=== PATIENT | female | born 1940 | race Caucasian/White ===

== ENCOUNTER → 2018-05-12 12:17 | Outpatient (CLI) | payer OTHER, SELFPAY ==
--- NOTE | 2018-05-12 | DI.MG.S_ITS ---
BILATERAL DIGITAL SCREENING MAMMOGRAM 3D/2D WITH CAD: 05/12/2018 CLINICAL: Routine screening. Comparison is made to exams dated: 04/11/2017 mammogram, 03/29/2016 mammogram, and 03/24/2015 mammogram - [facility]. The tissue of both breasts is predominantly fatty. Current study was also evaluated with a Computer Aided Detection (CAD) system. No significant masses, calcifications, or other findings are seen in either breast. There has been no significant interval change. IMPRESSION: NEGATIVE There is no mammographic evidence of malignancy. A 1 year screening mammogram is recommended. This exam was interpreted at Station ID: [id number]. NOTE: For mammograms, a report in lay terms will be sent to the patient. Approximately 15% of breast malignancies will not be visualized mammographically. In the management of a palpable breast mass, a negative mammogram must not discourage biopsy of a clinically suspicious lesion. Electronically Signed By: Lopez hood/rita:05/12/2018 16:54:45 letter sent: Normal Exam ACR BI-RADS Category 1: Negative 3341F
== END ==
PROVIDERS: PCP Physician Assistant; Visit Provider Physician Assistant
DX: Z12.31 Encounter for screening mammogram for malignant neoplasm of breast (principal)
CPT/HCPCS: 77063; 77067

== ENCOUNTER → 2018-05-19 09:08 | Outpatient (CLI) | payer OTHER, SELFPAY ==
--- NOTE | 2018-05-19 | DI.US.S_ITS ---
PROCEDURE: US RETRO PERITONEAL LIMITED INDICATIONS: AAA WITHOUT RUPTURE TECHNIQUE: Real time scanning was performed of the aorta and iliac arteries, with image documentation. COMPARISON: None. FINDINGS: Aorta: Proximal aortic diameter measures 2.3 cm. Mid-aorta measures 1.9 cm. Distal aortic diameter is 2.3 by 2.8 cm. Iliac arteries: Right common iliac artery measures 1.1 cm. Left common iliac artery measures 1.2 cm. IMPRESSION: Mild ectasia in the distal abdominal aorta for which a 5 year followup ultrasound is recommended. Iliac arteries are normal in caliber. Dictated by: Cody Cha M.D. on 05/19/2018 at 10:33 Approved by: Cody Cha M.D. on 05/19/2018 at 10:34
== END ==
PROVIDERS: PCP Physician Assistant; Visit Provider Physician Assistant
DX: I71.4 Abdominal aortic aneurysm, without rupture (principal)
CPT/HCPCS: 76775

== ENCOUNTER → 2019-04-29 09:08 | Outpatient (CLI) | payer OTHER, SELFPAY ==
[2019-04-29 10:57] LABS: Alanine Aminotransferase 17 IU/L (9-52); Albumin 4.3 g/dL (3.5-5.0); Albumin Globulin Ratio 1.4 (1.0-2.8); Alkaline Phosphatase 59 U/L (38-126); Aspartate Aminotransferase 30 IU/L (14-36); BUN Creatinine Ratio 26.7 (6-22); Bilirubin Total 0.6 mg/dL (0.2-1.3); Blood Urea Nitrogen 16 mg/dL (7-17); Calcium 9.5 mg/dL (8.4-10.2); Carbon Dioxide 33 mmol/L (22-32); Chloride 102 mmol/L (98-107); Cholesterol 148 mg/dL (140-199); Estimated Glomerular Filt Rate > 60.0 mL/min (>60); Globulin 3.1 g/dL (1.7-4.1); Glucose 93 mg/dL (80-110); HDL Cholesterol 57 mg/dL (40-60); HEMOLYSIS 21 (0-50); LDL Cholesterol Calculated 73 mg/dL (<100); Potassium 3.8 mmol/L (3.4-5.1); Sodium 140 mmol/L (137-145); Total Protein 7.4 g/dL (6.3-8.2); Triglycerides 91 mg/dL (35-150)
[2019-04-29 11:21] LABS: Thyroid Stimulating Hormone 1.16 uIU/mL (0.47-4.68)
[2019-05-02 10:35] LABS: Ionized Calcium 5.3 mg/dL (4.8-5.6)
[2019-05-02 16:52] LABS: Parathyroid Hormone Int 29 pg/mL (14-64)
== END ==
PROVIDERS: PCP Physician Assistant; Visit Provider Internal Medicine
DX: N39.0 Urinary tract infection, site not specified (principal); E78.5 Hyperlipidemia, unspecified; R00.1 Bradycardia, unspecified; E21.3 Hyperparathyroidism, unspecified
CPT/HCPCS: 36415; 80053; 80061; 82330; 83970; 84443

== ENCOUNTER → 2019-05-19 15:36 | Outpatient (CLI) | payer OTHER, SELFPAY ==
--- NOTE | 2019-05-19 | DI.MG.S_ITS ---
BILATERAL DIGITAL SCREENING MAMMOGRAM 3D/2D WITH CAD: 05/19/2019 CLINICAL: Routine screening. Comparison is made to exams dated: 05/12/2018 mammogram, 04/11/2017 mammogram, and 03/29/2016 mammogram - [facility]. There are scattered fibroglandular elements in both breasts. Current study was also evaluated with a Computer Aided Detection (CAD) system. No significant masses, calcifications, or other findings are seen in either breast. There has been no significant interval change. IMPRESSION: NEGATIVE There is no mammographic evidence of malignancy. A 1 year screening mammogram is recommended. This exam was interpreted at Station ID: [id number]. NOTE: For mammograms, a report in lay terms will be sent to the patient. Approximately 15% of breast malignancies will not be visualized mammographically. In the management of a palpable breast mass, a negative mammogram must not discourage biopsy of a clinically suspicious lesion. Electronically Signed By: Nancy hodge/rita:05/19/2019 16:21:40 letter sent: Normal Exam ACR BI-RADS Category 1: Negative 3341F
== END ==
PROVIDERS: PCP Physician Assistant; Visit Provider Physician Assistant
DX: Z12.31 Encounter for screening mammogram for malignant neoplasm of breast (principal)
CPT/HCPCS: 77063; 77067

== ENCOUNTER → 2019-06-24 13:31 | Outpatient (CLI) | payer OTHER, SELFPAY ==
[2019-06-25 08:57] LABS: Appearance Urine UA SL CLOUDY; Bilirubin Urine UA NEGATIVE (NEGATIVE); Color Urine UA YELLOW; Ketones Urine UA NEGATIVE (NEGATIVE); Leukocyte Esterase Urine UA 3+ (NEGATIVE); Nitrite Urine UA POSITIVE (Negative); Occult Blood Urine UA TRACE-LYSED (Negative); Protein Urine UA TRACE (Negative)
[2019-06-25 08:59] LABS: Glucose Urine UA NEGATIVE (Negative)
[2019-06-25 09:00] LABS: pH Urine UA 8.5 (4.5-8.0)
[2019-06-25 09:25] LABS: Bacteria Urine Many (>30); RBC Urine 0-1/HPF (0-5/HPF); Squamous Epithelial Cell Urine 1-5 /HPF (0-5/HPF); Triple Phosphate Crystal Urine Few; WBC Urine 1-5/HPF (0-5/HPF)
== END ==
PROVIDERS: PCP Physician Assistant; Visit Provider Internal Medicine
DX: N39.0 Urinary tract infection, site not specified (principal); E78.5 Hyperlipidemia, unspecified; R00.1 Bradycardia, unspecified; E21.3 Hyperparathyroidism, unspecified
CPT/HCPCS: 81001; 87077; 87086; 87186

== ENCOUNTER → 2019-10-27 14:47 | Outpatient (ROUT) | payer OTHER, SELFPAY ==
[2019-10-27 15:41] LABS: Alanine Aminotransferase 21 IU/L (<35); Albumin 4.3 g/dL (3.5-5.0); Albumin Globulin Ratio 1.5 (1.0-2.8); Alkaline Phosphatase 51 U/L (38-126); Aspartate Aminotransferase 29 IU/L (14-36); Bilirubin Total 0.7 mg/dL (0.2-1.3); Blood Urea Nitrogen 21 mg/dL (7-17); Calcium 9.7 mg/dL (8.4-10.2); Carbon Dioxide 34 mmol/L (22-32); Chloride 98 mmol/L (98-107); Cholesterol 158 mg/dL (140-199); Estimated Glomerular Filt Rate > 60.0 mL/min (>60); Globulin 2.8 g/dL (1.7-4.1); Glucose 69 mg/dL (80-110); HDL Cholesterol 57 mg/dL (40-60); HEMOLYSIS < 15 (0-50); LDL Cholesterol Calculated 71 mg/dL (<100); Potassium 4.9 mmol/L (3.4-5.1); Sodium 138 mmol/L (137-145); Total Protein 7.1 g/dL (6.3-8.2); Triglycerides 148 mg/dL (35-150)
[2019-10-27 17:00] LABS: Add Manual Diff / Slide Review NO; Basophils Absolute Auto 0 /uL (0-100); Basophils Percent Auto 0.7 % (0-2); Eosinophils Absolute Auto 100 /uL (0-450); Eosinophils Percent Auto 1.8 % (2-4); Hematocrit 39.2 % (36-46); Hemoglobin 13.3 g/dL (12.0-16.0); Lymphocytes Absolute Auto 1200 /uL (1100-4500); Lymphocytes Percent Auto 28.8 % (25-40); Mean Corpuscular Hemoglobin 30.7 PG (26-34); Mean Corpuscular Volume 90.4 fL (80-100); Monocytes Absolute Auto 400 /uL (0-900); Monocytes Percent Auto 8.5 % (3-14); Neutrophils Absolute Auto 2600 /uL (1500-7000); Neutrophils Percent Auto 60.2 % (50-75); Platelet Count 167 X10^3/uL (150-400); Red Blood Cell Count 4.33 X10^6/uL (4.0-5.2); Red Cell Distribution Width 13.3 % (11.6-14.8); White Blood Cell Count 4.3 X10^3/uL (4.5-11.0)
== END ==
PROVIDERS: PCP Physician Assistant; Visit Provider Physician Assistant
DX: I10 Essential (primary) hypertension (principal); E78.5 Hyperlipidemia, unspecified
CPT/HCPCS: 80053; 80061; 85025

== ENCOUNTER → 2020-01-11 11:43 | Outpatient (CLI) | payer OTHER, SELFPAY ==
[2020-01-11 12:06] LABS: Bacteria Urine None Seen; RBC Urine None Seen (0-5/HPF); WBC Urine None Seen (0-5/HPF)
[2020-01-11 12:21] LABS: Appearance Urine UA CLEAR; Bilirubin Urine UA NEGATIVE (NEGATIVE); Color Urine UA YELLOW; Glucose Urine UA NEGATIVE (Negative); Ketones Urine UA NEGATIVE (NEGATIVE); Leukocyte Esterase Urine UA NEGATIVE (NEGATIVE); Nitrite Urine UA NEGATIVE (Negative); Occult Blood Urine UA NEGATIVE (Negative); Protein Urine UA NEGATIVE (Negative); Urobilinogen Urine UA 0.2 E.U./dL (0.2)
[2020-01-11 12:53] LABS: Culture Indicated Urine Cult Not Indicated; Squamous Epithelial Cell Urine 0-1 /HPF (0-5/HPF)
== END ==
PROVIDERS: PCP Physician Assistant; Referring Provider Physician Assistant; Visit Provider Physician Assistant
DX: R39.9 Unspecified symptoms and signs involving the genitourinary system (principal); R30.0 Dysuria
CPT/HCPCS: 81001; 87086

== ENCOUNTER → 2020-07-01 13:33 | Outpatient (CLI) | payer OTHER, SELFPAY ==
--- NOTE | 2020-07-01 | DI.MG.S_ITS ---
BILATERAL DIGITAL SCREENING MAMMOGRAM 3D/2D WITH CAD: 07/01/2020 CLINICAL: Routine screening. Comparison is made to exams dated: 05/19/2019 mammogram, 05/12/2018 mammogram, and 04/11/2017 mammogram - [facility]. There are scattered fibroglandular elements in both breasts. Current study was also evaluated with a Computer Aided Detection (CAD) system. There is a 9 mm asymmetry in the right breast sub-areolar depth central to the nipple seen on the craniocaudal view only. This appears to have slowly/indolently enlarged when compared with prior studies. No other significant masses, calcifications, or other findings are seen in either breast. IMPRESSION: INCOMPLETE: NEEDS ADDITIONAL IMAGING EVALUATION Asymmetry in the right breast for which diagnostic mammogram and ultrasound are recommended. This exam was interpreted at Station ID: [id number]. NOTE: For mammograms, a report in lay terms will be sent to the patient. Approximately 15% of breast malignancies will not be visualized mammographically. In the management of a palpable breast mass, a negative mammogram must not discourage biopsy of a clinically suspicious lesion. Electronically Signed By: Jimbo Moody M.D. jr/:07/01/2020 16:53:46 letter sent: Additional Imaging Needed ACR BI-RADS Category 0: Incomplete 3340F
== END ==
PROVIDERS: PCP Physician Assistant; Referring Provider Physician Assistant; Visit Provider Physician Assistant
DX: Z12.31 Encounter for screening mammogram for malignant neoplasm of breast (principal)
CPT/HCPCS: 77063; 77067

== ENCOUNTER → 2020-07-07 14:43 | Outpatient (CLI) | payer OTHER, SELFPAY ==
--- NOTE | 2020-07-07 15:02 | DI.MG.S_ITS ---
Patient Name: URBANO LUCIANO date: 1940 Sex: F Attending Physician: Alvarez Indications: Date: 07/07/2020 15:15 At the request of: JOSE A MCNAMARA Procedure: US breast RT limited LIMITED ULTRASOUND OF RIGHT BREAST AND AXILLA: 07/07/2020 CLINICAL: Right breast abnormal Mammo. Comparison is made to exams dated: 07/07/2020 mammogram, 07/01/2020 mammogram, 05/19/2019 mammogram, 05/12/2018 mammogram, 04/11/2017 mammogram, and 03/29/2016 mammogram - [facility]. Color flow and real-time ultrasound of the right breast retroareolar and axilla regions were performed on the areas of interest. There is a 0.7 cm x 0.5 cm x 0.8 cm oval mass with an indistinct margin in the right breast at 9 o'clock in the retroareolar region. This oval mass is hypoechoic. This correlates with mammography findings. Color flow imaging demonstrates that there is vascularity present. No suspicious enlarged lymph nodes were seen sonographically in the right axilla. IMPRESSION: SUSPICIOUS OF MALIGNANCY The 0.7 cm x 0.5 cm x 0.8 cm oval mass in the right breast is suspicious of malignancy. An ultrasound guided biopsy is recommended. The findings were discussed with the patient at the conclusion of the study by Dr. Limon. This exam was interpreted at Station ID: [id number]. Electronically Signed By: Joel Corea M.D. ddp/:07/07/2020 15:33:08 letter sent: Biopsy Required Ultrasound BI-RADS: 4 Suspicious for malignancy
== END ==
PROVIDERS: PCP Physician Assistant; Referring Provider Physician Assistant; Visit Provider Physician Assistant
DX: R92.8 Other abnormal and inconclusive findings on diagnostic imaging of breast (principal); N63.15 Unspecified lump in the right breast, overlapping quadrants
CPT/HCPCS: 76642; 77065; G0279

== ENCOUNTER → 2020-07-22 13:54 | Outpatient (CLI) | payer OTHER, SELFPAY ==
--- NOTE | 2020-07-22 | PATH_ITS ---
[facility] Accession Number: [id number] . 01 Material submitted: . breast - RIGHT BREAST MASS 900 RETROAREOLAR . 01 Diagnosis: Right Breast Mass, 9 o'clock, Retroareolar, Biopsy: Breast parenchyma with fibroadenomatoid change, cystic duct dilatation, usual ductal hyperplasia, apocrine metaplasia, and focal adenosis. Calcifications are not identified. Negative for atypia, carcinoma in situ, and malignancy. MRV 07/25/2020 1735 Local . 01 Comment: Clinical and radiographic correlation is necessary. . 01 Electronically signed: . Fatou Novoa MD, Pathologist NPI- [id number] . 01 Gross description: . Received in formalin, labeled RT breast, are multiple pieces of north, fibrous tissue measuring 1.7 x 0.3 x 0.3 cm to 0.5 x 0.5 x 0.2 cm. All pieces of tissue are entirely submitted in cassettes A1 and A2, with five pieces in cassette A1 and three pieces in cassette A2. The collection date and time are listed as 07/22/20 at 15:34 for a total fixation time of approximately 17 hours after processing. ([id number]) /FRR 07/23/2020 0853 Local . 01 Microscopic: . No polarizable material is identified under polarizable light microscopy. . 01 Pathologist provided ICD-10: N60.19 . 01 CPT . 238516 Performed at: [address] [facility] [address], [place], [place] [id number] MD Joel Sweet MD Phone: [phone]
--- NOTE | 2020-07-22 14:31 | DI.US.S_ITS ---
Patient Name: URBANO LUCIANO date: 1940 Sex: F Attending Physician: Alvarez Indications: Date: 07/22/2020 15:37 At the request of: JOSE A MCNAMARA Procedure: US bx breast perc w vac device ULTRASOUND GUIDED BIOPSY RIGHT BREAST USING VACUUM DEVICE WITH MARKING DEVICE INSERTED: 07/22/2020 CLINICAL: Right breast mass. PATIENT CONSENT: Risks (minor bleeding, infection, vasovagal reaction and repeat procedure), benefits and alternatives were explained to the patient and written informed consent was obtained. Correlation is made to exams dated: 07/07/2020 ultrasound, 07/07/2020 mammogram, 07/01/2020 mammogram, and 05/19/2019 mammogram - [facility]. An ultrasound guided biopsy using real-time ultrasound was performed for the lesion located in the right breast at 9 o'clock in the retroareolar region. The skin was prepped in the usual manner. Local anesthetic was administered to the access site. A small incision was made in the breast. The abnormality was approached from the lateral aspect. A biopsy needle was placed adjacent to the abnormality under ultrasound guidance. Once the needle was documented to be in the correct location, seven specimens were obtained using the Mammotome biopsy system. A clip was inserted into the biopsy cavity. The specimens were sent to the laboratory for pathological analysis. IMPRESSION: ULTRASOUND GUIDED BIOPSY BENIGN Ultrasound guided biopsy of the lesion in the right breast at 9 o'clock in the retroareolar region was successful. Pathology demonstrates Breast parenchyma with fibroadenomatoid change, cystic duct dilatation, usual ductal hyperplasia, apocrine metaplasia, and focal adenosis. Calcifications are not identified. Negative for atypia, carcinoma in situ, and malignancy. Imaging is concordant. Recommend return to screening mammogram. Continued Report - Page 2 of 2 Patient Name: URBANO LUCIANO date: 1940 Sex: F Attending Physician: Alvarez Indications: Date: 07/22/2020 15:37 At the request of: JOSE A MCNAMARA Procedure: US bx breast perc w vac device This exam was interpreted at Station ID: [id number]. Anish srinivasan,slc/:07/26/2020 17:42:55
--- NOTE | 2020-07-22 15:33 | DI.MG.S_ITS ---
Patient Name: URBANO LUCIANO date: 1940 Sex: F Attending Physician: Alvarez Indications: Date: 07/22/2020 14:15 At the request of: JOSE A MCNAMARA Procedure: MM diagnostic mammo [id number] UNILATERAL RIGHT DIGITAL DIAGNOSTIC MAMMOGRAM POST-NEEDLE BIOPSY: 07/22/2020 CLINICAL: Right breast mass. Comparison is made to exams dated: 07/07/2020 mammogram, 07/01/2020 mammogram, and 05/19/2019 mammogram - [facility]. There are scattered fibroglandular elements in right breast. There is a marker clip in the appropriate position in the right breast at 9 o'clock anterior depth. This marker clip placement is at the biopsy site. IMPRESSION: POST PROCEDURE MAMMOGRAM FOR MARKER PLACEMENT There was a successful marker clip placement in the right breast This exam was interpreted at Station ID: [id number]. NOTE: For mammograms, a report in lay terms will be sent to the patient. Approximately 15% of breast malignancies will not be visualized mammographically. In the management of a palpable breast mass, a negative mammogram must not discourage biopsy of a clinically suspicious lesion. Electronically Signed By: Anish srinivasan/:07/22/2020 16:56:12 ACR BI-RADS Category Post-procedure mammogram for marker placement
== END ==
PROVIDERS: PCP Physician Assistant; Referring Provider Physician Assistant; Visit Provider Physician Assistant
DX: N60.81 Other benign mammary dysplasias of right breast (principal); N60.21 Fibroadenosis of right breast; N60.41 Mammary duct ectasia of right breast; N63.10 Unspecified lump in the right breast, unspecified quadrant
CPT/HCPCS: 19083; 77065

== ENCOUNTER → 2020-10-20 09:13 | Outpatient (CLI) | payer OTHER, SELFPAY ==
[2020-10-20 10:15] LABS: Add Manual Diff / Slide Review NO; Basophils Absolute Auto 0 /uL (0-100); Basophils Percent Auto 0.9 % (0-2); Eosinophils Absolute Auto 200 /uL (0-450); Eosinophils Percent Auto 3.5 % (2-4); Hematocrit 37.7 % (36-46); Hemoglobin 12.9 g/dL (12.0-16.0); Lymphocytes Absolute Auto 1500 /uL (1100-4500); Lymphocytes Percent Auto 33.6 % (25-40); Mean Corpuscular HGB Conc 34.2 % (30-36); Mean Corpuscular Hemoglobin 30.1 PG (26-34); Monocytes Absolute Auto 400 /uL (0-900); Monocytes Percent Auto 7.8 % (3-14); Neutrophils Absolute Auto 2500 /uL (1500-7000); Neutrophils Percent Auto 54.2 % (50-75); Platelet Count 218 X10^3/uL (150-400); Red Blood Cell Count 4.28 X10^6/uL (4.0-5.2); Red Cell Distribution Width 13.6 % (11.6-14.8); White Blood Cell Count 4.5 X10^3/uL (4.5-11.0)
[2020-10-20 10:39] LABS: Alanine Aminotransferase 24 IU/L (<35); Albumin Globulin Ratio 1.3 (1.0-2.8); Alkaline Phosphatase 74 U/L (38-126); Aspartate Aminotransferase 28 IU/L (14-36); BUN Creatinine Ratio 23.4 (6-22); Bilirubin Total 0.5 mg/dL (0.2-1.3); Blood Urea Nitrogen 18 mg/dL (7-17); Calcium 9.6 mg/dL (8.4-10.2); Carbon Dioxide 30 mmol/L (22-32); Chloride 105 mmol/L (98-107); Cholesterol 159 mg/dL (140-199); Estimated Glomerular Filt Rate > 60.0 mL/min (>60); Globulin 3.1 g/dL (1.7-4.1); Glucose 104 mg/dL (80-110); HDL Cholesterol 56 mg/dL (40-60); HEMOLYSIS < 15 (0-50); LDL Cholesterol Calculated 71 mg/dL (<100); Potassium 3.8 mmol/L (3.4-5.1); Sodium 138 mmol/L (137-145); Total Protein 7.1 g/dL (6.3-8.2); Triglycerides 160 mg/dL (35-150)
== END ==
PROVIDERS: PCP Physician Assistant; Referring Provider Physician Assistant; Visit Provider Physician Assistant
DX: I10 Essential (primary) hypertension (principal); E78.5 Hyperlipidemia, unspecified
CPT/HCPCS: 36415; 80053; 80061; 85025

== ENCOUNTER → 2021-01-03 13:48 | Outpatient (CLI) | payer OTHER, SELFPAY | PROVIDERS: PCP Physician Assistant; Visit Provider Specialist | DX: N39.0 Urinary tract infection, site not specified (principal); N95.2 Postmenopausal atrophic vaginitis; N39.9 Disorder of urinary system, unspecified; Z87.440 Personal history of urinary (tract) infections | CPT/HCPCS: 81002; 87086; 99215 ==

== ENCOUNTER → 2021-07-07 14:31 | Outpatient (CLI) | payer OTHER, SELFPAY ==
--- NOTE | 2021-07-07 | DI.MG.S_ITS ---
BILATERAL DIGITAL SCREENING MAMMOGRAM 3D/2D WITH CAD: 07/07/2021 CLINICAL: Routine screening. Comparison is made to exams dated: 07/01/2020 mammogram, 05/19/2019 mammogram, and 05/12/2018 mammogram - [facility]. There are scattered fibroglandular elements in both breasts. Current study was also evaluated with a Computer Aided Detection (CAD) system. There is a biopsy clip in the right breast. No significant masses, calcifications, or other findings are seen in either breast. There has been no significant interval change. IMPRESSION: NEGATIVE There is no mammographic evidence of malignancy. A 1 year screening mammogram is recommended. This exam was interpreted at Station ID: [id number]. NOTE: For mammograms, a report in lay terms will be sent to the patient. Approximately 15% of breast malignancies will not be visualized mammographically. In the management of a palpable breast mass, a negative mammogram must not discourage biopsy of a clinically suspicious lesion. Electronically Signed By: Trevor knapp/rita:07/07/2021 15:41:44 letter sent: Normal Exam ACR BI-RADS Category 1: Negative 3341F
== END ==
PROVIDERS: PCP Physician Assistant; Referring Provider Physician Assistant; Visit Provider Physician Assistant
DX: Z12.31 Encounter for screening mammogram for malignant neoplasm of breast (principal)
CPT/HCPCS: 77063; 77067

== ENCOUNTER → 2022-08-09 08:13 | Outpatient (CLI) | payer OTHER, SELFPAY ==
--- NOTE | 2022-08-09 | DI.MG.S_ITS ---
BILATERAL DIGITAL SCREENING MAMMOGRAM 3D/2D WITH CAD: 08/09/2022 CLINICAL: Routine screening. Comparison is made to exams dated: 07/07/2021 mammogram, 07/01/2020 mammogram, and 05/19/2019 mammogram - [facility]. There are scattered areas of fibroglandular density in both breasts (category b / 25%-50% glandular tissue). Current study was also evaluated with a Computer Aided Detection (CAD) system. There is a biopsy clip in the right breast. No significant masses, calcifications, or other findings are seen in either breast. There has been no significant interval change. IMPRESSION: BENIGN There is no mammographic evidence of malignancy. A 1 year screening mammogram is recommended. Based on the Tyrer Cuzick model (a risk assessment model) the patient's lifetime risk is 0.4% and her 10 year risk is 0.0%. According to the ACR, ACS, and NCCN guidelines, an annual breast MRI exam along with mammogram is recommended if the patient's lifetime risk is 20% or greater. This exam was interpreted at Station ID: [id number]. NOTE: For mammograms, a report in lay terms will be sent to the patient. Approximately 15% of breast malignancies will not be visualized mammographically. In the management of a palpable breast mass, a negative mammogram must not discourage biopsy of a clinically suspicious lesion. Electronically Signed By: Mike quispe/rita:08/09/2022 12:13:20 letter sent: Normal Exam ACR BI-RADS Category 2: Benign Finding(s) 3342F
== END ==
PROVIDERS: PCP Physician Assistant; Referring Provider Physician Assistant; Visit Provider Physician Assistant
DX: Z12.31 Encounter for screening mammogram for malignant neoplasm of breast (principal)
CPT/HCPCS: 77063; 77067

== ENCOUNTER 2024-02-03 13:38 | Emergency (ER) | payer OTHER, SELFPAY ==
[2024-02-03] VITALS (34 sets, daily range): BP systolic 102–244; BP diastolic 54–117; PULSE 42–76; RESP 13–36; TEMP 36.6; O2SAT 93–98; BMI 29.2
--- NOTE | 2024-02-03 13:54 | DI.RAD.S_ITS ---
PROCEDURE: XR CHEST 1V INDICATIONS: chest pain TECHNIQUE: One view of the chest was acquired. COMPARISON: [facility], , CHEST 2 VIEW, 09/15/2014, 15:09. FINDINGS: Surgical changes and devices: None. Lungs and pleura: Lungs are clear. No pleural effusions or pneumothorax. Mediastinum: Mediastinal contours appear normal. Heart size is mildly enlarged, as before. Bones and chest wall: No suspicious bony lesions. Overlying soft tissues appear unremarkable. IMPRESSION: Mild cardiomegaly, unchanged. No acute pulmonary findings. Dictated by: Nancy Russ M.D. on 02/03/2024 at 15:09 Approved by: Nancy Russ M.D. on 02/03/2024 at 15:12
[2024-02-03 14:18] LABS: INR 1.1 (0.9-1.3); Prothrombin Time 12.8 SECONDS (9.4-12.5)
[2024-02-03 14:21] LABS: PTT Partial Thromboplastin Tim 34 SECONDS (25.1-36.5)
[2024-02-03 14:22] LABS: Add Manual Diff / Slide Review NO; Basophils Absolute Auto 100 /uL (0-100); Basophils Percent Auto 0.8 % (0-2); Eosinophils Absolute Auto 100 /uL (0-450); Eosinophils Percent Auto 2.2 % (2-4); Hematocrit 42.2 % (36-46); Hemoglobin 14.2 g/dL (12.0-16.0); Lymphocytes Absolute Auto 2000 /uL (1100-4500); Lymphocytes Percent Auto 32.9 % (25-40); Mean Corpuscular HGB Conc 33.7 % (30-36); Mean Corpuscular Hemoglobin 31.1 PG (26-34); Mean Corpuscular Volume 92.1 fL (80-100); Monocytes Absolute Auto 400 /uL (0-900); Monocytes Percent Auto 6.6 % (3-14); Neutrophils Absolute Auto 3600 /uL (1500-7000); Neutrophils Percent Auto 57.5 % (50-75); Platelet Count 221 X10^3/uL (150-400); Red Blood Cell Count 4.58 X10^6/uL (4.0-5.2); Red Cell Distribution Width 13.9 % (11.6-14.8); White Blood Cell Count 6.2 X10^3/uL (4.5-11.0)
--- NOTE | 2024-02-03 14:22 | DI.CT.S_ITS ---
PROCEDURE: CT HEAD/BRAIN WO CON INDICATIONS: HTN, R SIDED HEADACHE TECHNIQUE: Noncontrast 4.5 mm thick angled axial sections acquired from the foramen magnum to the vertex, with coronal and sagittal reformats. For radiation dose reduction, the following was used: automated exposure control, adjustment of mA and/or kV according to patient size. COMPARISON: None. FINDINGS: Image quality: Diagnostic. CSF spaces: Basal cisterns are patent. No extra-axial fluid collections. The ventricles are symmetric in size and shape. Brain: No intracranial bleeds or masses. There is cerebral volume loss for age, with resultant ventricular and sulcal prominence. There are periventricular and deep white matter chronic small vessel ischemic changes. There is intracranial internal carotid artery atherosclerosis. Skull and face: Calvarium and visualized facial bones appear intact, without suspicious lesions. Sinuses: Visualized sinuses and mastoids are clear. IMPRESSION: 1. No acute intracranial abnormalities. 2. Cerebral volume loss and chronic microvascular ischemic changes. Dictated by: Marcello Llanes M.D. on 02/03/2024 at 14:55 Approved by: Marcello Llanes M.D. on 02/03/2024 at 14:55
[2024-02-03 14:26] LABS: Alanine Aminotransferase 24 IU/L (<35); Albumin 4.7 g/dL (3.5-5.0); Albumin Globulin Ratio 1.2 (1.0-2.8); Alkaline Phosphatase 64 U/L (38-126); Aspartate Aminotransferase 31 IU/L (14-36); BUN Creatinine Ratio 26.2 (6-22); Bilirubin Total 0.8 mg/dL (0.2-1.3); Blood Urea Nitrogen 16 mg/dL (7-17); Calcium 10.1 mg/dL (8.4-10.2); Carbon Dioxide 27 mmol/L (22-32); Chloride 106 mmol/L (98-107); Creatine Kinase 101 U/L (30-135); Estimated Glomerular Filt Rate > 60 mL/min (>60); Globulin 3.8 g/dL (1.7-4.1); Glucose 94 mg/dL (80-110); HEMOLYSIS < 15 (0-50); Lipase 181 U/L (23-300); Magnesium 2.1 mg/dL (1.6-2.3); Potassium 3.8 mmol/L (3.4-5.1); Sodium 139 mmol/L (137-145); Total Protein 8.5 g/dL (6.3-8.2)
--- NOTE | 2024-02-03 14:30 | ED.GENADULT ---
HPI - General Adult General Chief complaint: Hypertension Stated complaint: elevated BP Time Seen by Provider: 02/03/24 13:45 Source: patient Mode of arrival: Ambulatory History of Present Illness HPI narrative: 83-year-old female with history of hypertension presents by private vehicle from home for elevated blood pressure readings at home. Patient states for the last 3-4 days she has had allergy symptoms that has been poorly controlled. She feels stuffy and generally unwell and has not been sleeping well due to her symptoms. She has been taking Sudafed and Zyrtec for her symptoms with minimal relief. Patient states that she just got a new blood pressure cuff and was taking measurements and her blood pressure was consistently over 180 systolic. She became very concerned and called her doctor who bring her to the emergency department. Patient states she stopped taking chlorthalidone at the recommendations of her primary care doctor 1 month ago, denies any other medication changes. Patient states her primary symptom of her allergies is ear fullness as well as a right-sided temporal headache Related Data Home Medications Medication Instructions Recorded Confirmed CHOLECALCIFEROL (VITAMIN D) 1,000 iu PO Q DAY ##0 10/17/11 02/01/21 carvedilol 12.5 mg tablet (Coreg) 12.5 mg PO BID ##0 10/17/11 02/03/24 lisinopril 20 mg tablet (Prinivil) 20 mg PO BEDTIME ##0 10/17/11 02/03/24 atorvastatin 10 mg tablet 10 mg PO DAILY 12/30/20 02/01/21 bismuth subsalicylate 262 mg/15 mL 524 mg PO ONCE 12/30/20 02/01/21 oral suspension (Pepto-Bismol) cranberry extract 650 mg capsule 650 mg PO DAILY 12/30/20 02/01/21 d-mannose ea PO 12/30/20 02/01/21 loratadine 10 mg tablet 10 mg PO DAILY 12/30/20 02/01/21 (Allerclear) multivitamin 1 tab PO DAILY 12/30/20 02/01/21 omeprazole 20 mg capsule,delayed 20 mg PO DAILY 12/30/20 02/01/21 release tramadol 50 mg tablet 50 mg PO ONCE PRN 12/30/20 02/01/21 atorvastatin 10 mg tablet 10 mg PO DAILY 02/03/24 02/03/24 Previous Rx's Medication Instructions Recorded phenazopyridine 100 mg tablet 200 mg (2 x 100 mg) PO TID #12 tabs 01/19/18 (Pyridium) estradiol 10 mcg vaginal tablet 10 mcg vaginal 2XW #30 tabs 04/13/21 amlodipine 5 mg tablet 5 mg PO DAILY #30 tabs 02/03/24 Allergies Allergy/AdvReac Type Severity Reaction Status Date / Time Sulfa (Sulfonamide Allergy Unknown RASH Verified 02/03/24 15:35 Antibiotics) [SULFA (SULFONAMIDE ANTIBIOTICS)] Review of Systems Review of Systems Narrative: Negative except as noted above Patient History Medical History (Updated 02/03/24 @ 16:41 by Adenike Patel MD) Pelvic pain in female Lower urinary tract symptoms (LUTS) History of UTI Postmenopausal atrophic vaginitis Hypertension Chronic UTI Skin cancer Surgical History History of breast biopsy History of laparoscopy History of cholecystectomy History of appendectomy Family History Mother Multiple myeloma Hypertension Father Coronary artery disease Hearing impairment Hyperlipidemia Hypertension Social History marital status: number of children: 3 occupational status: previously employed Smoking Status: Former smoker Tobacco: How many years used: 13 alcohol intake: current caffeine: Yes Smoking Status: Former smoker Substance Use Type: does not use Exam Initial Vital Signs Initial Vital Signs: Vital Signs Pulse Rate 66 02/03/24 13:48 Pulse Oximetry 97 02/03/24 13:48 Const: Awake, alert, no acute distress, nontoxic appearing HEENT: PERRL, EOMI, TM with minimal nonpurulent effusion R TM Cardiac: regular rate, regular rhythm RESP: unlabored, clear bilaterally, no wheezing GI: Soft, nontender, nondistended, no rebound, no guarding MSK: Atraumatic, full range of motion, pulses equal Skin: Warm, Dry, intact, no rashes Neuro: AO x3, CN II-XII grossly intact, moves all extremities Course Orders Ordered: Discontinued Medications Hydralazine HCl (Hydralazine 20 Mg/Ml Vial) 10 mg IV NOW ONE Stop: 02/03/24 14:36 Last Admin: 02/03/24 14:50 Dose: 10 mg Documented By: BHAVIN Hydralazine HCl (Hydralazine 20 Mg/Ml Vial) 20 mg IV NOW ONE Stop: 02/03/24 15:28 Last Admin: 02/03/24 15:34 Dose: 20 mg Documented By: CHELLY Sodium Chloride (Normal Saline 0.9%) 500 mls @ 1,000 mls/hr IV BOLUS ONE Stop: 02/03/24 16:49 Last Infusion: 02/03/24 17:30 Dose: Infused Documented By: Admin: 02/03/24 16:20 Dose: 1,000 mls/hr Documented By: CHELLY Lisinopril (Lisinopril 20 Mg Tablet) 20 mg PO NOW ONE Stop: 02/03/24 14:36 Last Admin: 02/03/24 14:49 Dose: 20 mg Documented By: BHAVIN Ondansetron HCl (Ondansetron 4 Mg/2 Ml Inj) 4 mg IV NOW ONE Stop: 02/03/24 16:15 Last Admin: 02/03/24 16:22 Dose: 4 mg Documented By: CHELLY Vital Signs Vital signs: Vital Signs - 8 hr 02/03/24 13:48 02/03/24 13:49 02/03/24 13:49 Temperature Pulse Rate 66 71 Respiratory Rate Blood Pressure 241/113 H Pulse Oximetry 97 97 Oxygen Delivery Method 02/03/24 13:52 02/03/24 13:52 02/03/24 13:52 Temperature 97.8 F Pulse Rate 76 71 Respiratory Rate 16 15 Blood Pressure 229/100 H 229/100 H Pulse Oximetry 97 97 Oxygen Delivery Method Room Air Room Air 02/03/24 14:00 02/03/24 14:06 02/03/24 14:06 Temperature Pulse Rate 69 64 Respiratory Rate 27 H 22 Blood Pressure 241/115 H Pulse Oximetry 96 96 Oxygen Delivery Method 02/03/24 14:10 02/03/24 14:10 02/03/24 14:20 Temperature Pulse Rate 65 65 Respiratory Rate 20 19 Blood Pressure 239/111 H Pulse Oximetry 96 96 Oxygen Delivery Method 02/03/24 14:32 02/03/24 14:33 02/03/24 14:33 Temperature Pulse Rate 72 68 Respiratory Rate 18 17 Blood Pressure 244/117 H Pulse Oximetry 94 96 Oxygen Delivery Method 02/03/24 14:44 02/03/24 14:49 02/03/24 14:50 Temperature Pulse Rate 67 64 64 Respiratory Rate 21 Blood Pressure 244/117 H 244/117 H Pulse Oximetry 95 Oxygen Delivery Method 02/03/24 14:50 02/03/24 15:00 02/03/24 15:00 Temperature Pulse Rate 62 64 Respiratory Rate 16 19 Blood Pressure 230/107 H Pulse Oximetry 97 97 Oxygen Delivery Method 02/03/24 15:10 02/03/24 15:10 02/03/24 15:20 Temperature Pulse Rate 68 67 Respiratory Rate 29 H 14 Blood Pressure 230/106 H Pulse Oximetry 97 98 Oxygen Delivery Method 02/03/24 15:21 02/03/24 15:21 02/03/24 15:22 Temperature Pulse Rate 69 67 Respiratory Rate 20 Blood Pressure 242/111 H 242/111 H Pulse Oximetry 98 Oxygen Delivery Method 02/03/24 15:30 02/03/24 15:30 02/03/24 15:34 Temperature Pulse Rate 67 68 Respiratory Rate 16 Blood Pressure 233/105 H 233/105 H Pulse Oximetry 98 Oxygen Delivery Method 02/03/24 15:40 02/03/24 15:52 02/03/24 15:55 Temperature Pulse Rate 68 72 72 Respiratory Rate 26 H 18 17 Blood Pressure Pulse Oximetry 98 97 97 Oxygen Delivery Method Room Air Room Air 02/03/24 15:55 02/03/24 16:00 02/03/24 16:00 Temperature Pulse Rate 69 Respiratory Rate 13 Blood Pressure 147/69 H 127/60 Pulse Oximetry 97 Oxygen Delivery Method 02/03/24 16:10 02/03/24 16:10 02/03/24 16:14 Temperature Pulse Rate 58 L Respiratory Rate 25 H Blood Pressure 105/58 L 102/54 L Pulse Oximetry 97 Oxygen Delivery Method Room Air 02/03/24 16:14 02/03/24 16:15 02/03/24 16:16 Temperature Pulse Rate 61 51 L Respiratory Rate 30 H Blood Pressure 102/54 L 102/54 L Pulse Oximetry 96 Oxygen Delivery Method 02/03/24 16:16 02/03/24 16:20 02/03/24 16:20 Temperature Pulse Rate 45 L 42 L Respiratory Rate 28 H 22 Blood Pressure 124/61 Pulse Oximetry 96 95 Oxygen Delivery Method 02/03/24 16:30 03/25/24 16:30 Temperature Pulse Rate 59 L Respiratory Rate 24 Blood Pressure 128/60 Pulse Oximetry 93 Oxygen Delivery Method Medical Decision Making Lab Data 02/03/24 14:00 02/03/24 14:00 Labs: Lab Results 02/03/24 Range/Units 14:00 WBC 6.2 (4.5-11.0) X10^3/uL RBC 4.58 (4.0-5.2) X10^6/uL Hgb 14.2 (12.0-16.0) g/dL Hct 42.2 (36-46) % MCV 92.1 (80-100) fL MCH 31.1 (26-34) PG MCHC 33.7 (30-36) % RDW 13.9 (11.6-14.8) % Plt Count 221 (150-400) X10^3/uL Neut % (Auto) 57.5 (50-75) % Lymph % (Auto) 32.9 (25-40) % Isabela % (Auto) 6.6 (3-14) % Eos % (Auto) 2.2 (2-4) % Baso % (Auto) 0.8 (0-2) % Neut # (Auto) 3600 (3188-9146) /uL Lymph # (Auto) 2000 (0781-2042) /uL Isabela # (Auto) 400 (0-900) /uL Eos # (Auto) 100 (0-450) /uL Baso # (Auto) 100 (0-100) /uL PT 12.8 H (9.4-12.5) SECONDS INR 1.1 (0.9-1.3) APTT 34 (25.1-36.5) SECONDS Sodium 139 (137-145) mmol/L Potassium 3.8 (3.4-5.1) mmol/L Chloride 106 (98-107) mmol/L Carbon Dioxide 27 (22-32) mmol/L BUN 16 (7-17) mg/dL Creatinine 0.61 (0.52-1.04) mg/dL Estimated GFR > 60 (>60) mL/min BUN/Creatinine Ratio 26.2 H (6-22) Glucose 94 (80-110) mg/dL Calcium 10.1 (8.4-10.2) mg/dL Magnesium 2.1 (1.6-2.3) mg/dL Total Bilirubin 0.8 (0.2-1.3) mg/dL AST 31 (14-36) IU/L ALT 24 (<35) IU/L Alkaline Phosphatase 64 (38-126) U/L Total Creatine Kinase 101 (30-135) U/L Troponin I < 0.012 (0.01-0.034) ng/mL Total Protein 8.5 H (6.3-8.2) g/dL Albumin 4.7 (3.5-5.0) g/dL Globulin 3.8 (1.7-4.1) g/dL Albumin/Globulin Ratio 1.2 (1.0-2.8) Lipase 181 (23-300) U/L Urine Dip Bedside Urine Glucose Negative Bedside Urine Bilirubin - Negative Bedside Urine Ketone - Negative Urine Specific [place] 1.010 Bedside Urine Occult Blood - Negative Bedside Urine pH 7.5 Bedside Urine Protein +/- 15 Bedside Urine Urobilinogen - Negative Bedside Urine Nitrite + Positive Bedside Urine Leukocytes +++ 500 Esterase Point of care testing: Urine Dip Bedside Urine Glucose Negative Bedside Urine Bilirubin - Negative Bedside Urine Ketone - Negative Urine Specific [place] 1.010 Bedside Urine Occult Blood - Negative Bedside Urine pH 7.5 Bedside Urine Protein +/- 15 Bedside Urine Urobilinogen - Negative Bedside Urine Nitrite + Positive Bedside Urine Leukocytes +++ 500 Esterase Imaging Data Chest x-ray: Radiologist's Impression: PROCEDURE: XR CHEST 1V INDICATIONS: chest pain TECHNIQUE: One view of the chest was acquired. COMPARISON: [facility], , CHEST 2 VIEW, 09/15/2014, 15:09. FINDINGS: Surgical changes and devices: None. Lungs and pleura: Lungs are clear. No pleural effusions or pneumothorax. Mediastinum: Mediastinal contours appear normal. Heart size is mildly enlarged, as before. Bones and chest wall: No suspicious bony lesions. Overlying soft tissues appear unremarkable. IMPRESSION: Mild cardiomegaly, unchanged. No acute pulmonary findings. Dictated by: Nancy Russ M.D. on 02/03/2024 at 15:09 Approved by: Nancy Russ M.D. on 02/03/2024 at 15:12 CT scan - head: Radiologist's Impression: PROCEDURE: CT HEAD/BRAIN WO CON INDICATIONS: HTN, R SIDED HEADACHE TECHNIQUE: Noncontrast 4.5 mm thick angled axial sections acquired from the foramen magnum to the vertex, with coronal and sagittal reformats. For radiation dose reduction, the following was used: automated exposure control, adjustment of mA and/or kV according to patient size. COMPARISON: None. FINDINGS: Image quality: Diagnostic. CSF spaces: Basal cisterns are patent. No extra-axial fluid collections. The ventricles are symmetric in size and shape. Brain: No intracranial bleeds or masses. There is cerebral volume loss for age, with resultant ventricular and sulcal prominence. There are periventricular and deep white matter chronic small vessel ischemic changes. There is intracranial internal carotid artery atherosclerosis. Skull and face: Calvarium and visualized facial bones appear intact, without suspicious lesions. Sinuses: Visualized sinuses and mastoids are clear. IMPRESSION: 1. No acute intracranial abnormalities. 2. Cerebral volume loss and chronic microvascular ischemic changes. Dictated by: Marcello Llanes M.D. on 02/03/2024 at 14:55 Approved by: Marcello Llanes M.D. on 02/03/2024 at 14:55 [facility] Narrative Medical decision making narrative: 83-year-old female who is overall well-appearing presenting for asymptomatic hypertension. Elevated blood pressures likely exacerbated by taking Sudafed at home as well as poor sleep from feeling severe allergy symptoms. Patient has minimal nonpurulent fluid buildup behind her right tympanic membrane but no other physical exam abnormalities. She was awake, alert, oriented, pleasant, denying any signs or symptoms of hypertensive emergency like chest pain, shortness of breath, worst headache of life, vision changes. Since patient is hypertensive and complaining of a right-sided headache for the last several days we will order a CT scan. Laboratory work is reviewed, unremarkable. Blood pressure not initially controlled with hydralazine, however a 2nd dose of hydralazine did improve the patient's blood pressure. Patient did have a brief episode where her heart rate dropped to the 40s and her blood pressure went to 102 systolic. Patient states that she got up to use the restroom, and while urinating began to feel lightheaded and somewhat nauseous. When she was escorted back to her bed her blood pressure and heart rate were noted to drop. Both heart rate and blood pressure improved without any interventions. Patient was given Zofran for nausea with improvement in symptoms. I suspect that patient had a vagal episode while urinating contributing to the symptoms as she had not received any antihypertensive agents in over 45 minutes prior to symptoms presenting. Patient informed of all lab and imaging findings, she was allowed to recover from her hypotensive episode and remained asymptomatic. We will start 5 mg of amlodipine. Patient counseled to follow up with primary care physician. Discharge Plan Departure Patient Disposition: Home Clinical Impression: Hypertension Instructions: DI for High Blood Pressure Activity Restrictions/Additional Instructions: Start amlodipine 5mg daily. Continue all other medications as prescribed. Continue to take your allergy medications as prescribed. Please follow up with your primary care physician. Prescriptions: New amlodipine 5 mg tablet 5 mg PO DAILY Qty: 30 0RF No Action lisinopril [Prinivil] 20 MG tablet 20 mg PO BEDTIME Qty: 0 carvedilol [Coreg] 12.5 MG tablet 12.5 mg PO BID Qty: 0 CHOLECALCIFEROL (VITAMIN D) 1,000 iu PO Q DAY Qty: 0 phenazopyridine [Pyridium] 100 MG tablet 200 mg PO TID Qty: 12 0RF cranberry extract 650 mg capsule 650 mg PO DAILY Rx Instructions: administer with a meal d-mannose Powder PO bismuth subsalicylate [Pepto-Bismol] 262 mg/15 mL suspension 524 mg PO ONCE atorvastatin 10 mg tablet 10 mg PO DAILY tramadol 50 mg tablet 50 mg PO ONCE PRN loratadine [Allerclear] 10 mg tablet 10 mg PO DAILY omeprazole 20 mg capsule,delayed release(DR/EC) 20 mg PO DAILY multivitamin Tablet 1 tab PO DAILY estradiol 10 mcg tablet 10 mcg vaginal 2XW Qty: 30 0RF atorvastatin 10 mg tablet 10 mg PO DAILY Referrals: Eula Pino PA-C [Primary Care Provider] - Stand Alone Forms: Patient Portal/API
[2024-02-03 14:37] LABS: Troponin I < 0.012 ng/mL (0.01-0.034)
[2024-02-03] MEDS: lisinopriL 20 MG TABLET PO (14:49)
[2024-02-03] MEDS: HYDRALAZINE 20 MG/ML VIAL 10 MG IV (14:50)
[2024-02-03] MEDS: HYDRALAZINE 20 MG/ML VIAL IV (15:34)
--- NOTE | 2024-02-03 15:58 | PC.NURSE ---
Pt ambulatory to the bathroom with stand by assist. After being in the bathroom pt reports dizziness, feeling wobbly. Pt assisted to sit back down on the toilet and W/C was brought. Pt W/C'ed back into bed.
--- NOTE | 2024-02-03 16:15 | PC.NURSE ---
Pt became hypotensive and bradycardic with nausea, and lightheadedness. title vehicle service attendant Kate and Dr. Patel at bedside. repeat EKG performed. New orders for zofran and 500cc bolus NS. Pt HOB lowered. @1622 Pt reports feeling better, less nauseated. See vitals.
[2024-02-03] MEDS: SODIUM CHLORIDE 0.9% 500 ML 1000 ML IV (16:20)
[2024-02-03] MEDS: ONDANSETRON 4 MG/2 ML INJ IV (16:22)
== END 2024-02-03 17:31 | disposition home or self-care (01) ==
PROVIDERS: Emergency Provider Emergency Medicine; PCP Physician Assistant
DX: I10 Essential (primary) hypertension (principal); R07.9 Chest pain, unspecified; R51.9 Headache, unspecified; Z79.899 Other long term (current) drug therapy
CPT/HCPCS: 36415; 70450; 71045; 80053; 81003; 82550; 83690; 83735; 84484; 85025; 85610; 85730; 93005; 96361; 96374; 96375; 96376; 99284; J0360; J2405

== ENCOUNTER → 2024-05-29 14:30 | Outpatient (CLI) | payer OTHER, SELFPAY ==
--- NOTE | 2024-05-29 14:39 | DI.RAD.S_ITS ---
PROCEDURE: XR LUMBAR SPINE 2-3V INDICATIONS: Back Pain TECHNIQUE: 3 views of the lumbar spine were acquired. COMPARISON: None. FINDINGS: Bones: 5 [id number]-poa-xramxny vertebrae are present. Levoconvex curvature of the lumbar spine. 3 mm grade 1 retrolisthesis at L1-2. 3 mm grade 1 anterolisthesis at L4-5. No vertebral body compression fractures. No suspicious bony lesions. Multilevel disc space narrowing degenerative endplate changes and multilevel facet hypertrophy are present. Soft tissues: Overlying bowel gas pattern is normal. Aortic atherosclerotic calcifications are seen. Suspected infrarenal abdominal aortic aneurysm measuring up to 3.3 cm in diameter. Surgical suture material is seen in the right abdomen. IMPRESSION: 1. Moderate multilevel spondylosis and degenerative spondylolisthesis. 2. Suspected infrarenal abdominal aortic aneurysm. Recommend abdominal aortic ultrasound for further evaluation. Approved by: Mahin Mcrae M.D. on 05/29/2024 at 16:54
--- NOTE | 2024-05-29 14:39 | DI.RAD.S_ITS ---
PROCEDURE: XR CERVICAL SPINE 2V OR 3V INDICATIONS: Pain TECHNIQUE: 3 views of the cervical spine were acquired. COMPARISON: None. FINDINGS: Bones: No acute fractures or dislocations to the T1 level. The lateral masses of C1 appear intact on the odontoid view. No suspicious bony lesions. Multilevel disc space narrowing and degenerative endplate changes. Multilevel uncovertebral joint and facet hypertrophy. Soft tissues: No prevertebral soft tissue swelling. IMPRESSION: Moderate multilevel cervical spondylosis. Approved by: Mahin Mcrae M.D. on 05/29/2024 at 16:48
--- NOTE | 2024-05-29 14:39 | DI.RAD.S_ITS ---
PROCEDURE: XR THORACIC SPINE 3V INDICATIONS: Back Pain TECHNIQUE: 3 views of the thoracic spine were acquired. COMPARISON: None. FINDINGS: Bones: No acute fractures or dislocations. No suspicious bony lesions. 12 pairs of ribs are noted, and appear intact where visualized. Mild scoliotic curvature of the thoracolumbar spine. Mild degenerative endplate changes are seen at the midthoracic spine. Soft tissues: No paravertebral stripe thickening. IMPRESSION: Mild thoracic spondylosis. Approved by: Mahin Mcrae M.D. on 05/29/2024 at 16:50
--- NOTE | 2024-05-29 14:39 | DI.RAD.S_ITS ---
PROCEDURE: XR HIP W PEL IF DONE FRANKIE MIN 4V INDICATIONS: Back Pain TECHNIQUE: AP pelvis with lateral views of the right and left hips. COMPARISON: None. FINDINGS: Bones: No acute fractures or dislocations. Pelvic ring appears intact. No suspicious bony lesions. Mild disc spurring of the lateral acetabula. Degenerative changes are seen in the included spine. Soft tissues: The visualized bowel gas pattern is normal. No suspicious soft tissue calcifications. IMPRESSION: Mild bilateral hip osteoarthrosis. Approved by: Mahin Mcrae M.D. on 05/29/2024 at 16:56
== END ==
PROVIDERS: PCP Physician Assistant
DX: M47.814 Spondylosis without myelopathy or radiculopathy, thoracic region (principal); M47.816 Spondylosis without myelopathy or radiculopathy, lumbar region; M48.061 Spinal stenosis, lumbar region without neurogenic claudication; M47.812 Spondylosis without myelopathy or radiculopathy, cervical region; M51.36 Other intervertebral disc degeneration, lumbar region; M43.16 Spondylolisthesis, lumbar region; M16.0 Bilateral primary osteoarthritis of hip; M54.2 Cervicalgia; M54.9 Dorsalgia, unspecified; M54.6 Pain in thoracic spine; G89.29 Other chronic pain
CPT/HCPCS: 72040; 72072; 72100; 73522

== ENCOUNTER → 2024-05-30 13:45 | Outpatient (CLI) | payer OTHER, SELFPAY ==
--- NOTE | 2024-05-30 13:47 | DI.MRI.S_ITS ---
PROCEDURE: MR LUMBAR SPINE WO CON INDICATIONS: CHRONIC NECK AND BACK PAIN, MID/LOWER BACK PAIN TECHNIQUE: Noncontrast sagittal T1 spin echo and T2 fast echo, sagittal STIR, and T2 fast spin echo through the lumbar spine. In cases with scoliosis, additional coronal T2 fast spin echo may be performed. COMPARISON: [facility], MR, MR THORACIC SPINE WO CON, 05/30/2024, 14:01. [facility], CR, XR LUMBAR SPINE 2-3V, 05/29/2024, 14:41. FINDINGS: Image quality: Excellent. Alignment and Curvature: There is minimal retrolisthesis at L1-L2 and L2-L3. Minimal anterolisthesis is seen at L4-L5 and L5-S1. No pars defects are seen. Mild levoconvex scoliotic curvature is noted. Bone Marrow: Marrow is of normal overall signal. No acute vertebral body compression fractures. Spinal Cord: Conus medullaris terminates at the L1 level. Visualized cord demonstrates normal signal and size. Paraspinous Soft Tissues: No paravertebral masses. T12-L1: No significant abnormality is seen. L1-L2: Moderate loss of disc height is seen. Loss of disc signal is seen. There is a superimposed central disc protrusion. There is moderate left-sided and at least moderate right-sided neural foraminal narrowing. Mild central canal narrowing is seen. L2-L3: Moderate loss of disc height is seen. Loss of disc signal is seen. Mild to moderate generalized disc bulge is seen. There is a central disc protrusion seen. Mild facet joint hypertrophy is seen. There is mild left-sided and moderate right-sided neural foraminal narrowing. Mild to moderate central canal narrowing is seen. L3-L4: Mupn-zf-uxucwlyf loss of disc height and disc signal can be seen. Moderate generalized disc bulge is seen. There is a central disc protrusion. Mild facet joint hypertrophy is seen. There is minimal left-sided and moderate right-sided neural foraminal narrowing. Moderate central canal narrowing is seen. L4-L5: The disc height is well-preserved. Loss of disc signal is seen at this level. Mild to moderate disc bulge is seen, with a central disc protrusion. At least moderate facet hypertrophy is seen. There is [id number]-matkqhoh right-sided and mild left-sided neural foraminal narrowing. Moderate central canal narrowing is seen. L5-S1: The disc height is well-preserved. Loss of disc signal is seen at this level. Mild disc bulge is seen, which is eccentric to the left. There is a focal annular fissure seen posteriorly. There is mild right-sided and at least moderate left-sided facet hypertrophy. There is mild right-sided and moderate left-sided neural foraminal narrowing. Minimal central canal narrowing is seen. IMPRESSION: Multiple levels of lumbar spine degenerative change can be seen. Mild levoconvex scoliotic curvature is noted. Dictated by: Jose C Elise M.D. on 06/01/2024 at 10:57 Approved by: Jose C Elise M.D. on 06/01/2024 at 11:02
--- NOTE | 2024-05-30 13:47 | DI.MRI.S_ITS ---
PROCEDURE: MR THORACIC SPINE WO CON INDICATIONS: CHRONIC NECK AND BACK PAIN, MID/LOWER BACK PAIN TECHNIQUE: Noncontrast sagittal T1 spine echo and T2 fast spin echo, sagittal STIR, and T2 fast spin echo through the thoracic spine. COMPARISON: [facility], CR, XR THORACIC SPINE 3V, 05/29/2024, 14:41. [facility], MR, MR LUMBAR SPINE WO CON, 05/30/2024, 14:01. FINDINGS: Image quality: Excellent. Alignment and Curvature: Mild dextroconvex scoliotic curvature is seen. Accentuated thoracic kyphosis is seen. Bone Marrow: Marrow is of normal overall signal. No acute vertebral body compression fractures. Spinal Cord: Visualized spinal cord is normal in size and signal. Paraspinous Soft Tissues: No paravertebral masses. Miscellaneous: No significant neural foraminal or central canal narrowing can be seen within the thoracic spine. IMPRESSION: No significant neural foraminal or central canal narrowing can be seen. Accentuated thoracic kyphosis is seen. Mild dextroconvex scoliotic curvature is seen. Dictated by: Jose C Elise M.D. on 06/01/2024 at 10:42 Approved by: Jose C Elise M.D. on 06/01/2024 at 10:45
== END ==
PROVIDERS: PCP Physician Assistant; Referring Provider Physician Assistant; Visit Provider Physician Assistant
DX: M47.816 Spondylosis without myelopathy or radiculopathy, lumbar region (principal); M47.817 Spondylosis without myelopathy or radiculopathy, lumbosacral region; M40.204 Unspecified kyphosis, thoracic region; M54.50 Low back pain, unspecified; M54.2 Cervicalgia; M54.9 Dorsalgia, unspecified; G89.29 Other chronic pain
CPT/HCPCS: 72146; 72148

== ENCOUNTER → 2025-08-13 11:37 | Outpatient (CLI) | payer OTHER, SELFPAY ==
--- NOTE | 2025-08-13 11:40 | DI.RAD.S_ITS ---
PROCEDURE: XR CERVICAL SPINE 4V OR 5V INDICATIONS: NECK PAIN TECHNIQUE: 5 total views of the cervical spine were acquired, including bilateral oblique views. COMPARISON: [facility], CR, XR CERVICAL SPINE 2V OR 3V, 05/29/2024, 14:41. FINDINGS: Bones: No fractures or dislocations to the C7-T1 level. Oblique images demonstrate no bony foraminal stenoses. Focal degenerative change is seen involving the C1-C2 interface anteriorly. There is mild disc space narrowing at C4-C5, with moderate disc space narrowing at C5-C6, with mild disc space narrowing at C6-C7. On the right, there is moderate neural foraminal narrowing seen at C3-C4, C4-C5, and C5-C6. On the left, there is at least moderate neural foraminal narrowing seen at C3-C4 and C4-C5. Soft tissues: No prevertebral soft tissue swelling. The visualized lung apices are unremarkable. Atherosclerotic calcification can be seen, including involving the carotid bifurcations and the aortic arch. IMPRESSION: Multiple levels of cervical spine degenerative change can be seen by plain film. Dictated by: Jose C Elise M.D. on 08/13/2025 at 11:50 Approved by: Jose C Elise M.D. on 08/13/2025 at 11:52
== END ==
PROVIDERS: PCP Physician Assistant; Referring Provider Physical Medicine & Rehabilitation; Visit Provider Physician Assistant
DX: M47.812 Spondylosis without myelopathy or radiculopathy, cervical region (principal); M54.2 Cervicalgia
CPT/HCPCS: 72050

== ENCOUNTER 2025-10-05 14:50 | Outpatient (CLI) | payer OTHER, SELFPAY ==
[2025-10-05] VITALS (10 sets, daily range): BP systolic 180–201; BP diastolic 84–92; PULSE 60–75; RESP 16–18; TEMP 36.9; O2SAT 96–100
[2025-10-05] MEDS: MIDAZOLAM 2 MG/2 ML VIAL IV (16:36)
[2025-10-05] MEDS: LIDOCAINE 1% 20 ML 5 ML INJ (16:41)
--- NOTE | 2025-10-05 17:00 | PM.PROC.IR.1 ---
Date/Time/Diagnoses Date of procedure: 10/05/25 Time of procedure: 17:00 Pre-procedure diagnosis: 1. FACET ARTHROPATHY Post-procedure diagnosis: same Procedure Notes Procedure: 1. BILATERAL- L4, L5 and S1 DIAGNOSTIC MB BLOCKS with LA Anesthetic Indications: Criselda is referred by [facility] for treatment of Bilateral Axial LBP. Physician: Cipriano Locke Total Fluoroscopy time (seconds): 9 Total sedation minutes: 15 Complications: none Procedure in detail & Post-procedure care: DESCRIPTION OF PROCEDURE Fluoroscopically guided, contrast-controlled bilateral L4, L5 and S1 medial branch blocks with 0.5cc of 0.5% Marcaine. Following review of allergy and review of potential side effects and complications, including, but not necessarily limited to, infection, allergic reaction, local tissue breakdown, nerve injury, paralysis, stroke and possible , the patient indicated that the patient understood and agreed to proceed. An informed consent document was signed by the patient, witnessed by a nurse, and placed in the patient's chart. After review of previous anaesthesic history and IV conscious sedation the patient was deemed safe to proceed with today's procedure with IV conscious sedation as ASA class II designation. Safety time-out was performed to confirm patient ID, procedure to be performed and site of procedure. IV sedation was accomplished with a combination of 2mg of Versed was administered by the RN after DO order, titrated to patient comfort during the course of the procedure while the patient remained responsive to all verbal commands In the prone position, following sterile prep and drape of the lumbar region, the right L4, L5 and S1 anatomical location of the medial branch of the dorsal ramus was identified fluoroscopically. Subsequently an anesthetic skin wheal using 1% lidocaine solution was initiated at each of the anatomical spots. Subsequently then a 22-gauge 3.5-inch spinal needle was atraumatically introduced and advanced under fluoroscopic guidance at each of the corresponding sites at the right L4, L5 and S1 MB. After negative aspiration, 0.2cc of Isovue 200 was injected, confirming placement without vascular or intrathecal uptake. Subsequently then 0.5cc of 0.5% Marcaine solution was injected at each of the corresponding sites at the right L4, L5 and S1 medial branch locations. The identical procedure was replicated on the left. The patient tolerated the procedure well without signs or symptoms of complications prior to transfer to the recovery area continued monitoring without incident. Post-procedure, the patient was monitored initiating provocative activities to measure the amount of relief from block of the facetogenic pain. The patient reported a VAS of 7 prior to the procedure and a post-procedure VAS of 1. It has been a pleasure to assist in the diagnostic and therapeutic care of your patient. POST OP INSTRUCTIONS The patient was provided with a Pain Log to complete over the next several hours and subsequent days prior to the patient's follow up with the ordering physician. If the patient has off track betting manager relief to the solution applied, then they may be a candidate for medial branch rhizotomy. The patient is aware, was provided, once again, with a Pain Log and will follow up with the referring physician for review and clinical correlation
== END 2025-10-05 17:25 | disposition home or self-care (01) ==
PROVIDERS: PCP Physician Assistant; Referring Provider Physician Assistant; Visit Provider Physical Medicine & Rehabilitation
DX: M47.816 Spondylosis without myelopathy or radiculopathy, lumbar region (principal); M47.817 Spondylosis without myelopathy or radiculopathy, lumbosacral region
CPT/HCPCS: 64493; 64494; 99152; J2250